=== PATIENT | male | born 1960 | race Caucasian/White ===

== ENCOUNTER 2019-06-17 20:49 | Emergency (ER) | payer MEDICAID ==
[~2019-06-17] VITALS: Ht 160 cm; Wt 50.0 kg
[2019-06-17] MEDS ORDERED: ONDANSETRON HCL 4MG/2ML INJ IV STA (21:35)
[2019-06-17] MEDS ORDERED: KETOROLAC 30MG/ML VIAL IV STA (21:35)
[2019-06-17] MEDS ORDERED: SODIUM CHLORIDE 0.9% 1,000 ML IV ONE (21:35)
[2019-06-17] MEDS ORDERED: MAGNESIUM/ALUMINUM HYDROXIDE/SIMETHICONE 30ML UDC PO STA (21:35)
[2019-06-17 21:57] LABS: HEMATOCRIT. 39.2 % (42.0-52.0); HEMOGLOBIN. 13.4 g/dL (14.0-18.0); MEAN CORPUSCULAR HEMOGLOBIN 29.9 pg (28.0-32.0); MEAN CORPUSCULAR VOLUME 87.2 fL (80.0-94.0); MEAN PLATELET VOLUME 6.7 fl (7.4-10.4); PLATELET 563 x1000/uL (130-400); RED BLOOD CELL COUNT 4.49 mill/uL (4.7-6.1); RED CELL DISTRIBUTION WIDTH 13.1 % (11.6-14.6)
[2019-06-17 22:01] LABS: CHLORIDE 98 mEq/L (98-107)
[2019-06-17 22:04] LABS: PROTHROMBIN TIME 10.4 sec (9.6-11.0)
[2019-06-17 22:06] LABS: ETHANOL BLOOD < 10 mg/dL
[2019-06-17 22:14] LABS: PLATELET ESTIMATE INCREASED
[2019-06-17 23:29] LABS: CLARITY URINE CLOUDY (CLEAR); COLOR URINE YELLOW (YELLOW); KETONES URINE 1+ (NEGATIVE); LEUKOCYTE ESTERASE URINE NEGATIVE (NEGATIVE); NITRITE URINE NEGATIVE (NEGATIVE); OCCULT BLOOD URINE NEGATIVE (NEGATIVE); PROTEIN URINE NEGATIVE (NEGATIVE); SPECIFIC GRAVITY URINE 1.022 (1.005-1.030); UROBILINOGEN URINE 0.2 E.U./dL (0.2-1.0)
[2019-06-18 00:47] VITALS: BP 140/88
== END 2019-06-18 00:49 | disposition home or self-care (01) ==
LOC: ER 20:49
DX: N30.00 Acute cystitis without hematuria (principal); E11.9 Type 2 diabetes mellitus without complications
CPT/HCPCS: 36415; 71045; 74176; 80053; 80320; 81003; 83690; 85025; 85610; 93005; 96361; 96374; 96375; 99284; J1885; J2405; J7030; G0480